=== PATIENT | female | born 2000 | race Caucasian/White ===

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

== ENCOUNTER → 2022-01-05 | Outpatient (CLI) | payer BC | LOC: M PLAIMG 07:45 | PROVIDERS: ATTEND Physician Assistant | DX: M54.2 Cervicalgia (principal) ==

== ENCOUNTER → 2022-01-05 | Outpatient (CLI) | payer BC | LOC: M WHC 07:09 | PROVIDERS: ATTEND Physician Assistant | DX: R10.84 Generalized abdominal pain (principal) ==

== ENCOUNTER 2022-01-06 14:10 | Emergency (ER) | payer BC ==
[~2022-01-06] VITALS: Ht 157.5 cm; Wt 70.5 kg
[2022-01-06] MEDS ORDERED: ACETAMINOPHEN 500 MG TAB PO ONE (18:00)
[2022-01-06 20:08] VITALS: BP 127/86
== END 2022-01-06 20:16 | disposition home or self-care (01) ==
LOC: M ED 18:10
DX: M25.562 Pain in left knee (principal); W00.0XXA Fall on same level due to ice and snow, initial encounter; Y99.0 Civilian activity done for income or pay; G89.29 Other chronic pain; M54.9 Dorsalgia, unspecified; M54.2 Cervicalgia; E07.9 Disorder of thyroid, unspecified; F17.290 Nicotine dependence, other tobacco product, uncomplicated; Z79.890 Hormone replacement therapy; Z79.51 Long term (current) use of inhaled steroids; Z79.899 Other long term (current) drug therapy

== ENCOUNTER 2022-02-08 10:00 | Outpatient (RCR) | payer BC, OTHER | END 2022-02-17 | LOC: M PT 10:00 | PROVIDERS: ATTEND Orthopaedic Surgery Hand Surgery | DX: M54.50 Low back pain, unspecified (principal) ==

== ENCOUNTER 2022-03-19 14:15 | Outpatient (RCR) | payer BC | END 2022-03-20 | LOC: M PT 14:15 | PROVIDERS: ATTEND Orthopaedic Surgery Hand Surgery | DX: M54.50 Low back pain, unspecified (principal); M54.2 Cervicalgia ==

== ENCOUNTER 2022-04-16 10:45 | Outpatient (RCR) | payer BC | END 2022-04-17 | LOC: M PT 10:45 | PROVIDERS: ATTEND Orthopaedic Surgery Hand Surgery | DX: M54.50 Low back pain, unspecified (principal); M54.2 Cervicalgia ==

== ENCOUNTER 2022-04-24 10:47 | Outpatient (RCR) | payer BC ==
[2022-04-24] MEDS ORDERED: SUCR1ORA2 (12:31)
[2022-04-24] MEDS ORDERED: FAMO20TA5 (12:31)
[2022-04-24] MEDS ORDERED: ESOM40CA35 (12:31)
== END 2022-05-18 ==
LOC: M PT 10:47
PROVIDERS: ATTEND Orthopaedic Surgery Hand Surgery
DX: M54.50 Low back pain, unspecified (principal); M54.2 Cervicalgia

== ENCOUNTER 2022-04-24 11:49 | Emergency (ER) | payer BC ==
[~2022-04-24] VITALS: Ht 157.5 cm; Wt 46.7 kg
[2022-04-24] MEDS ORDERED: ESOM40CA35 (12:31)
[2022-04-24] MEDS ORDERED: SUCR1ORA2 (12:31)
[2022-04-24] MEDS ORDERED: FAMO20TA5 (12:31)
[2022-04-24 12:56] LABS: BASO % 0.6 % (0.0-1.0); EOS # 0.2 10^3/uL (0.0-0.5); EOS % 2.8 % (0.0-3.0); HEMATOCRIT 42.9 % (36.0-47.0); HEMOGLOBIN 13.9 g/dl (12.0-15.5); LYMPH # 1.8 10^3/uL (1.5-5.0); LYMPH % 32.3 % (24.0-44.0); MEAN CORPUSCULAR HEMOGLOBIN 27.4 pg (27.0-33.0); MEAN CORPUSCULAR HGB CONC 32.4 g/dl (32.0-36.5); MEAN CORPUSCULAR VOLUME 84.6 fl (80.0-96.0); MONO # 0.5 10^3/uL (0.0-0.8); MONO % 8.3 % (2.0-8.0); NEUTROPHILS % 55.8 % (36.0-66.0); PLATELET COUNT, AUTOMATED 226 10^3/uL (150-450); RED BLOOD COUNT 5.07 10^6/uL (4.00-5.40); WHITE BLOOD COUNT 5.4 10^3/uL (4.0-10.0)
[2022-04-24 13:25] LABS: BLOOD UREA NITROGEN 11 MG/DL (9-23); CARBON DIOXIDE LEVEL 29 MMOL/L (20-31); CHLORIDE LEVEL 106 MMOL/L (98-107); CREATININE FOR GFR 0.74 MG/DL (0.55-1.30); GLUCOSE, FASTING 88 MG/DL (60-100); POTASSIUM SERUM 4.8 MMOL/L (3.5-5.1); SODIUM LEVEL 139 MMOL/L (136-145)
[2022-04-24 13:28] LABS: HCG, SERUM QUALITATIVE NEGATIVE (NEGATIVE); THYROID STIMULATING HORMONE 1.343 uIU/ML (0.48-4.17)
[2022-04-24 16:00] VITALS: BP 119/73
[2022-04-24 16:23] LABS: MAGNESIUM LEVEL 1.8 MG/DL (1.8-2.4)
[2022-04-24 16:24] LABS: CK-MB VALUE MASS < 1.0 NG/ML (<3.6); CPK CREATINE PHOSPHOKINASE 88 U/L (34-145); MB/CK RELATIVE INDEX 1.13 (< OR =4)
[2022-04-24 16:27] LABS: FERRITIN 28.5 NG/ML (7.3-270.7)
[2022-04-24 16:30] LABS: FOLATE 14.84 NG/ML (>5.4)
== END 2022-04-24 16:13 | disposition left against medical advice (07) ==
LOC: M ED 11:49
DX: R42 Dizziness and giddiness (principal); R00.2 Palpitations; Z53.20 Procedure and treatment not carried out because of patient's decision for unspecified reasons; J45.909 Unspecified asthma, uncomplicated; K21.9 Gastro-esophageal reflux disease without esophagitis; E03.9 Hypothyroidism, unspecified; F32.A Depression, unspecified; F41.9 Anxiety disorder, unspecified; F17.290 Nicotine dependence, other tobacco product, uncomplicated; Z79.51 Long term (current) use of inhaled steroids; Z79.890 Hormone replacement therapy; Z79.899 Other long term (current) drug therapy

== ENCOUNTER → 2023-04-10 | Outpatient (REF) | payer BC ==
[~2023-04-10] MED LIST changes: +ESOM40CA35; +FAMO20TA5; +SUCR1ORA2
== END ==
LOC: M SFHCADAM 13:36
PROVIDERS: ATTEND Family Medicine
DX: R09.89 Other specified symptoms and signs involving the circulatory and respiratory systems (principal)

== ENCOUNTER → 2023-04-17 | Outpatient (CLI) | payer BC ==
[2023-04-17 11:27] LABS: BASO % 0.4 % (0.0-1.0); EOS # 0.1 10^3/uL (0.0-0.5); HEMATOCRIT 43.7 % (36.0-47.0); HEMOGLOBIN 14.4 g/dl (12.0-15.5); LYMPH # 1.3 10^3/uL (1.5-5.0); LYMPH % 29.6 % (24.0-44.0); MEAN CORPUSCULAR HEMOGLOBIN 27.4 pg (27.0-33.0); MEAN CORPUSCULAR VOLUME 83.2 fl (80.0-96.0); MONO # 0.5 10^3/uL (0.0-0.8); MONO % 10.2 % (2.0-8.0); NEUTROPHILS # 2.6 10^3/uL (1.5-8.5); NEUTROPHILS % 57.6 % (36.0-66.0); PLATELET COUNT, AUTOMATED 241 10^3/uL (150-450); RED BLOOD COUNT 5.25 10^6/uL (4.00-5.40); WHITE BLOOD COUNT 4.5 10^3/uL (4.0-10.0)
[2023-04-17 12:03] LABS: THYROID STIMULATING HORMONE 1.033 uIU/ML (0.55-4.78)
[2023-04-17 12:04] LABS: ALBUMIN 4.1 G/DL (3.2-5.2); ALKALINE PHOSPHATASE 75 U/L (46-116); ALT/SGPT 12 U/L (7.0-40); AST/SGOT 8 U/L (<34); BILIRUBIN,TOTAL 0.5 MG/DL (0.3-1.2); BLOOD UREA NITROGEN 14 MG/DL (9-23); CARBON DIOXIDE LEVEL 27 MMOL/L (20-31); CHLORIDE LEVEL 108 MMOL/L (98-107); CREATININE FOR GFR 0.77 MG/DL (0.55-1.30); GLOMERULAR FILTRATION RATE > 60.0 (>60); GLUCOSE, FASTING 77 MG/DL (60-100); POTASSIUM SERUM 5.3 MMOL/L (3.5-5.1); SODIUM LEVEL 141 MMOL/L (136-145); TOTAL PROTEIN 6.6 G/DL (5.7-8.2)
== END ==
LOC: M PLALAB 08:50
PROVIDERS: ATTEND Family Medicine
DX: E03.9 Hypothyroidism, unspecified (principal); F31.81 Bipolar II disorder

== ENCOUNTER → 2023-04-24 | Outpatient (CLI) | payer BC | LOC: M PLALAB 12:03 | PROVIDERS: ATTEND Physician Assistant Medical | DX: R07.81 Pleurodynia (principal); J06.9 Acute upper respiratory infection, unspecified; B97.89 Other viral agents as the cause of diseases classified elsewhere ==

== ENCOUNTER → 2023-08-13 | Outpatient (REF) | payer BC ==
[2023-08-13 19:20] LABS: GC DNA AMPLIFICATION NEGATIVE (NEGATIVE)
== END ==
LOC: M SFHCPLAZ 15:02
PROVIDERS: ATTEND Family Medicine
DX: Z12.4 Encounter for screening for malignant neoplasm of cervix (principal); Z11.9 Encounter for screening for infectious and parasitic diseases, unspecified

== ENCOUNTER 2023-09-14 10:35 | Emergency (ER) | payer BC ==
[~2023-09-14] VITALS: Ht 154.9 cm; Wt 80.4 kg
[2023-09-14] MEDS ORDERED: HYDR-3363 (10:54)
[2023-09-14] MEDS ORDERED: LAMI25TA (10:54)
[2023-09-14] MEDS ORDERED: PROP10TA56 (10:54)
[2023-09-14] MEDS ORDERED: BUSP10TA79 (10:54)
[2023-09-14] MEDS ORDERED: LEVO88TA3 (10:54)
[2023-09-14 11:42] LABS: BASO % 0.4 % (0.0-1.0); EOS # 0.2 10^3/uL (0.0-0.5); EOS % 2.1 % (0.0-3.0); HEMATOCRIT 41.6 % (36.0-47.0); HEMOGLOBIN 13.8 g/dl (12.0-15.5); LYMPH # 1.9 10^3/uL (1.5-5.0); LYMPH % 26.5 % (24.0-44.0); MEAN CORPUSCULAR HEMOGLOBIN 27.8 pg (27.0-33.0); MEAN CORPUSCULAR HGB CONC 33.2 g/dl (32.0-36.5); MEAN CORPUSCULAR VOLUME 83.9 fl (80.0-96.0); MONO # 0.7 10^3/uL (0.0-0.8); MONO % 9.5 % (2.0-8.0); NEUTROPHILS # 4.5 10^3/uL (1.5-8.5); NEUTROPHILS % 61.4 % (36.0-66.0); PLATELET COUNT, AUTOMATED 225 10^3/uL (150-450); RED BLOOD COUNT 4.96 10^6/uL (4.00-5.40); WHITE BLOOD COUNT 7.3 10^3/uL (4.0-10.0)
[2023-09-14 11:56] LABS: INR 0.97; PARTIAL THROMBOPLASTIN TIME 30.1 SECONDS (24.8-34.2); PROTHROMBIN TIME 12.6 SECONDS (12.5-14.5)
[2023-09-14 12:02] LABS: CK-MB VALUE MASS < 1.0 NG/ML (<3.6)
[2023-09-14 12:03] LABS: LIPASE 28 U/L (12-53)
[2023-09-14 12:04] LABS: CPK CREATINE PHOSPHOKINASE 67 U/L (34-145); MB/CK RELATIVE INDEX 1.49 (< OR =4)
[2023-09-14 12:05] LABS: ALKALINE PHOSPHATASE 96 U/L (46-116); ALT/SGPT 13 U/L (7.0-40); AST/SGOT < 8 U/L (<34); BILIRUBIN,DIRECT 0.2 MG/DL (<0.4); BILIRUBIN,TOTAL 0.5 MG/DL (0.3-1.2); BLOOD UREA NITROGEN 19 MG/DL (9-23); CALCIUM LEVEL 8.7 MG/DL (8.5-10.1); CARBON DIOXIDE LEVEL 31 MMOL/L (20-31); CHLORIDE LEVEL 107 MMOL/L (98-107); CREATININE FOR GFR 0.75 MG/DL (0.55-1.30); GLOMERULAR FILTRATION RATE > 60.0 (>60); GLUCOSE, FASTING 59 MG/DL (60-100); SODIUM LEVEL 141 MMOL/L (136-145); TOTAL PROTEIN 6.6 G/DL (5.7-8.2)
[2023-09-14 12:06] LABS: FREE T4 1.56 NG/DL (0.89-1.76)
[2023-09-14 12:07] LABS: THYROID STIMULATING HORMONE 1.305 uIU/ML (0.55-4.78)
[2023-09-14 12:24] LABS: HCG, SERUM QUALITATIVE NEGATIVE (NEGATIVE)
[2023-09-14] MEDS: OMEPRAZOLE 20MG CAP PO ONE (12:45)
[2023-09-14] MEDS: SUCRALFATE 1 GM TAB PO ONE (12:45)
[2023-09-14] MEDS ORDERED: ISOVUE-370 76% 100ML VIAL As Ordered ONE (12:47)
[2023-09-14 13:03] LABS: AMPHETAMINES LEVEL URINE NEGATIVE (NEGATIVE); BARBITURATES URINE NEGATIVE (NEGATIVE); BENZODIAZEPINES URINE NEGATIVE (NEGATIVE); COCAINE METABOLITE URINE NEGATIVE (NEGATIVE); METHADONE URINE NEGATIVE (NEGATIVE); OPIATES URINE NEGATIVE (NEGATIVE); PHENCYCLIDINE URINE NEGATIVE (NEGATIVE)
[2023-09-14 13:05] LABS: CANNABINOIDS URINE POSITIVE (NEGATIVE)
[2023-09-14] MEDS ORDERED: FAMO20TA PO (14:25)
[2023-09-14] MEDS ORDERED: CARA1TAB6 PO (14:25)
[2023-09-14 14:37] VITALS: BP 120/72; TEMP 97.5; O2SAT 100
== END 2023-09-14 14:40 | disposition home or self-care (01) ==
LOC: M ED 10:35
DX: R07.89 Other chest pain (principal); K21.9 Gastro-esophageal reflux disease without esophagitis; J45.909 Unspecified asthma, uncomplicated; F17.290 Nicotine dependence, other tobacco product, uncomplicated; Z79.899 Other long term (current) drug therapy
CPT/HCPCS: 36415; 71046; 71275; 80048; 80076; 80307; 82550; 82553; 83690; 84439; 84443; 84484; 84703; 85025; 85610; 85730; 93005; 99284; Q9967

== ENCOUNTER 2023-12-23 13:04 | Emergency (ER) | payer OTHER, BC ==
[~2023-12-23] VITALS: Ht 154.9 cm; Wt 82.2 kg
[~2023-12-23 13:04] MED LIST changes: +BUSP10TA79; +CARA1TAB6 PO; +FAMO20TA PO; +HYDR-3363; +LAMI25TA; +LEVO88TA3; +PROP10TA56
[2023-12-23] MEDS: ACETAMINOPHEN 500 MG TAB PO ONE (14:40)
[2023-12-23 15:45] LABS: HCG, SERUM QUALITATIVE NEGATIVE (NEGATIVE)
[2023-12-23 17:01] VITALS: BP 117/64; TEMP 97.6; O2SAT 100
== END 2023-12-23 17:05 | disposition home or self-care (01) ==
LOC: M ED 13:04
DX: S06.0X0A Concussion without loss of consciousness, initial encounter (principal); S16.1XXA Strain of muscle, fascia and tendon at neck level, initial encounter; Y92.9 Unspecified place or not applicable; Y93.9 Activity, unspecified; Y99.0 Civilian activity done for income or pay; E03.9 Hypothyroidism, unspecified; J45.909 Unspecified asthma, uncomplicated; F41.9 Anxiety disorder, unspecified; F32.A Depression, unspecified; F17.290 Nicotine dependence, other tobacco product, uncomplicated; F12.10 Cannabis abuse, uncomplicated; F10.10 Alcohol abuse, uncomplicated; Z79.899 Other long term (current) drug therapy

== ENCOUNTER → 2024-03-17 | Outpatient (CLI) | payer BC ==
[2024-03-17 17:49] LABS: HEMATOCRIT 40.7 % (36.0-47.0); HEMOGLOBIN 13.6 g/dl (12.0-15.5); MEAN CORPUSCULAR HEMOGLOBIN 27.8 pg (27.0-33.0); MEAN CORPUSCULAR HGB CONC 33.4 g/dl (32.0-36.5); MEAN CORPUSCULAR VOLUME 83.1 fl (80.0-96.0); PLATELET COUNT, AUTOMATED 235 10^3/uL (150-450); WHITE BLOOD COUNT 8.9 10^3/uL (4.0-10.0)
[2024-03-17 18:22] LABS: THYROID STIMULATING HORMONE 0.027 uIU/ML (0.55-4.78)
[2024-03-17 18:35] LABS: HEPATITIS B SURFACE ANTIGEN NEGATIVE (NEGATIVE)
[2024-03-17 18:47] LABS: HIV 1&2 SCREEN NEGATIVE (NEGATIVE)
== END ==
LOC: M PLALAB 15:23
PROVIDERS: ATTEND Family Medicine
DX: Z34.91 Encounter for supervision of normal pregnancy, unspecified, first trimester (principal)

== ENCOUNTER → 2024-04-01 | Outpatient (CLI) | payer BC | LOC: M RAD 08:17 | PROVIDERS: ATTEND Family Medicine | DX: Z34.91 Encounter for supervision of normal pregnancy, unspecified, first trimester (principal) ==

== ENCOUNTER → 2024-04-09 | Outpatient (CLI) | payer BC ==
[2024-04-09 11:11] LABS: Trichomonas vaginalis (AMP) NOT DETECTED (NEGATIVE)
[2024-04-09 11:34] LABS: GC DNA AMPLIFICATION NEGATIVE (NEGATIVE)
== END ==
LOC: M PLALAB 08:57
PROVIDERS: ATTEND Nurse Practitioner Family
DX: Z34.81 Encounter for supervision of other normal pregnancy, first trimester (principal)

== ENCOUNTER 2024-04-22 06:34 | Emergency (ER) | payer BC ==
[~2024-04-22] VITALS: Ht 154.9 cm; Wt 79.5 kg
[2024-04-22 06:47] VITALS: BP 135/82; TEMP 98.6; O2SAT 98
[2024-04-22 07:46] LABS: BASO % 0.3 % (0.0-1.0); EOS # 0.1 10^3/uL (0.0-0.5); EOS % 0.7 % (0.0-3.0); HEMATOCRIT 38.7 % (36.0-47.0); HEMOGLOBIN 13.3 g/dl (12.0-15.5); LYMPH # 1.3 10^3/uL (1.5-5.0); LYMPH % 11.5 % (24.0-44.0); MEAN CORPUSCULAR HEMOGLOBIN 28.2 pg (27.0-33.0); MEAN CORPUSCULAR HGB CONC 34.4 g/dl (32.0-36.5); MONO # 0.7 10^3/uL (0.0-0.8); MONO % 6.3 % (2.0-8.0); NEUTROPHILS # 8.9 10^3/uL (1.5-8.5); NEUTROPHILS % 80.9 % (36.0-66.0); PLATELET COUNT, AUTOMATED 213 10^3/uL (150-450); RED BLOOD COUNT 4.72 10^6/uL (4.00-5.40); WHITE BLOOD COUNT 10.9 10^3/uL (4.0-10.0)
[2024-04-22 08:20] LABS: BLOOD UREA NITROGEN 6 MG/DL (9-23); CALCIUM LEVEL 8.9 MG/DL (8.5-10.1); CARBON DIOXIDE LEVEL 26 MMOL/L (20-31); CHLORIDE LEVEL 108 MMOL/L (98-107); CREATININE FOR GFR 0.66 MG/DL (0.55-1.30); GLOMERULAR FILTRATION RATE > 60.0 (>60); GLUCOSE, FASTING 88 MG/DL (60-100); POTASSIUM SERUM 4.8 MMOL/L (3.5-5.1); SODIUM LEVEL 142 MMOL/L (136-145)
[2024-04-22 08:32] LABS: APPEARANCE, URINE CLEAR (CLEAR); BACTERIA, URINE AUTO NEGATIVE (NEGATIVE); BILIRUBIN, URINE AUTO NEGATIVE (NEGATIVE); BLOOD, URINE BLOOD 2+ (NEGATIVE); COLOR, URINE YELLOW (YELLOW); GLUCOSE, URINE (UA) AUTO NEGATIVE (NEGATIVE); KETONE, URINE AUTO NEGATIVE (NEGATIVE); LEUKOCYTE ESTERASE, URINE AUTO NEGATIVE (NEGATIVE); MUCUS, URINE SMALL (NEGATIVE); NITRITE, URINE AUTO NEGATIVE (NEGATIVE); PROTEIN, URINE AUTO NEGATIVE (NEGATIVE); RBC, URINE AUTO 0 /HPF (0-3); SQUAMOUS EPITHELIAL CELL UR AU 0 /HPF (0-6); UROBILINOGEN, URINE AUTO 0.2 mg/dL (0.0-2.0); WBC, URINE AUTO 0 /HPF (0-3)
== END 2024-04-22 12:09 | disposition home or self-care (01) ==
LOC: M ED 06:34
DX: O02.1 Missed abortion (principal); Z3A.09 9 weeks gestation of pregnancy; K21.9 Gastro-esophageal reflux disease without esophagitis; E03.9 Hypothyroidism, unspecified; Z79.899 Other long term (current) drug therapy

== ENCOUNTER → 2024-04-25 | Outpatient (CLI) | payer BC | LOC: M LAB 14:42 | PROVIDERS: ATTEND Advanced Practice Midwife | DX: O03.9 Complete or unspecified spontaneous abortion without complication (principal) ==

== ENCOUNTER 2024-04-27 13:13 | Emergency (ER) | payer BC ==
[~2024-04-27] VITALS: Ht 154.9 cm; Wt 78.6 kg
[2024-04-27 13:17] VITALS: TEMP 98.1
[2024-04-27 13:52] LABS: BASO % 0.3 % (0.0-1.0); EOS # 0.1 10^3/uL (0.0-0.5); EOS % 0.7 % (0.0-3.0); HEMATOCRIT 37.6 % (36.0-47.0); HEMOGLOBIN 12.4 g/dl (12.0-15.5); LYMPH # 0.8 10^3/uL (1.5-5.0); MEAN CORPUSCULAR HEMOGLOBIN 27.3 pg (27.0-33.0); MEAN CORPUSCULAR VOLUME 82.6 fl (80.0-96.0); MONO # 0.6 10^3/uL (0.0-0.8); MONO % 8.1 % (2.0-8.0); NEUTROPHILS # 6.2 10^3/uL (1.5-8.5); NEUTROPHILS % 80.6 % (36.0-66.0); PLATELET COUNT, AUTOMATED 186 10^3/uL (150-450); RED BLOOD COUNT 4.55 10^6/uL (4.00-5.40); WHITE BLOOD COUNT 7.7 10^3/uL (4.0-10.0)
[2024-04-27] MEDS: NS (Normal Saline) 0.9% 1,000 ML IV ONE ×2 (14:02→17:22)
[2024-04-27 14:16] LABS: LIPASE 20 U/L (12-53)
[2024-04-27 14:18] LABS: ALKALINE PHOSPHATASE 87 U/L (35-104); ALT/SGPT 18 U/L (7.0-40); AST/SGOT 16 U/L (<34); BILIRUBIN,DIRECT 0.2 MG/DL (<0.4); BILIRUBIN,TOTAL 0.6 MG/DL (0.3-1.2); BLOOD UREA NITROGEN 11 MG/DL (9-23); CALCIUM LEVEL 9.2 MG/DL (8.5-10.1); CARBON DIOXIDE LEVEL 22 MMOL/L (20-31); CHLORIDE LEVEL 103 MMOL/L (98-107); CREATININE FOR GFR 0.61 MG/DL (0.55-1.30); GLOMERULAR FILTRATION RATE > 60.0 (>60); GLUCOSE, FASTING 110 MG/DL (60-100); POTASSIUM SERUM 3.3 MMOL/L (3.5-5.1); SODIUM LEVEL 138 MMOL/L (136-145)
[2024-04-27 14:31] LABS: HCG, SERUM QUANTITATIVE 4370.7 MIU/ML (<4.2)
[2024-04-27] MEDS: POTASSIUM CHLORIDE 10MEQ SR TABLET PO ONE (14:53)
[2024-04-27] MEDS: IBUPROFEN 600MG TAB PO ONE (17:22)
[2024-04-27 19:17] VITALS: BP 119/58; O2SAT 99
== END 2024-04-27 19:18 | disposition home or self-care (01) ==
LOC: M ED 13:13
DX: O03.4 Incomplete spontaneous abortion without complication (principal); K21.9 Gastro-esophageal reflux disease without esophagitis; F41.9 Anxiety disorder, unspecified; F32.A Depression, unspecified; Z91.048 Other nonmedicinal substance allergy status; Z79.899 Other long term (current) drug therapy

== ENCOUNTER → 2024-05-05 | Outpatient (CLI) | payer BC | LOC: M PLALAB 15:13 | PROVIDERS: ATTEND Advanced Practice Midwife | DX: O03.9 Complete or unspecified spontaneous abortion without complication (principal) ==

== ENCOUNTER 2024-05-09 23:12 | Emergency (ER) | payer BC ==
[~2024-05-09] VITALS: Ht 154.9 cm; Wt 68.2 kg
[~2024-05-09 23:12] MED LIST changes: -BUSP10TA79; +BUSP10TA79 PO; -HYDR-3363; +HYDR-3363 PO; -LAMI25TA; +LAMI25TA PO; -PROP10TA56; +PROP10TA56 PO
[2024-05-10 00:02] LABS: BASO % 0.4 % (0.0-1.0); EOS # 0.1 10^3/uL (0.0-0.5); HEMATOCRIT 34.7 % (36.0-47.0); HEMOGLOBIN 11.3 g/dl (12.0-15.5); LYMPH # 1.4 10^3/uL (1.5-5.0); LYMPH % 17.6 % (24.0-44.0); MEAN CORPUSCULAR HEMOGLOBIN 27.2 pg (27.0-33.0); MEAN CORPUSCULAR HGB CONC 32.6 g/dl (32.0-36.5); MEAN CORPUSCULAR VOLUME 83.4 fl (80.0-96.0); MONO # 0.7 10^3/uL (0.0-0.8); MONO % 8.2 % (2.0-8.0); NEUTROPHILS # 5.9 10^3/uL (1.5-8.5); NEUTROPHILS % 72.6 % (36.0-66.0); PLATELET COUNT, AUTOMATED 280 10^3/uL (150-450); RED BLOOD COUNT 4.16 10^6/uL (4.00-5.40); WHITE BLOOD COUNT 8.1 10^3/uL (4.0-10.0)
[2024-05-10 00:06] LABS: KETONE, URINE AUTO RFX TRACE mg/dL (NEGATIVE); MUCUS, URINE RFX SMALL (NEGATIVE); NITRITE, URINE AUTO RFX NEGATIVE (NEGATIVE); RBC, URINE AUTO RFX TNTC /HPF (0-3); SQUAM EPITHELIAL CELL UR AURFX 1 /HPF (0-6); WBC, URINE AUTO RFX 0 /HPF (0-3)
[2024-05-10 00:19] LABS: LEUKOCYTE ESTERASE UR AUTO RFX TRACE (NEGATIVE)
[2024-05-10 00:27] LABS: BLOOD UREA NITROGEN 14 MG/DL (9-23); CARBON DIOXIDE LEVEL 26 MMOL/L (20-31); CHLORIDE LEVEL 105 MMOL/L (98-107); CREATININE FOR GFR 0.69 MG/DL (0.55-1.30); GLOMERULAR FILTRATION RATE > 60.0 (>60); GLUCOSE, FASTING 105 MG/DL (60-100); HCG, SERUM QUANTITATIVE 46.4 MIU/ML (<4.2); SODIUM LEVEL 141 MMOL/L (136-145)
[2024-05-10] MEDS: ONDANSETRON 4MG 2ML VIAL IV ONE (01:30)
[2024-05-10] MEDS: MORPHINE 2 MG/ML 1ML VIAL IV ONE (01:30)
[2024-05-10] MEDS: NS (Normal Saline) 0.9% 1,000 ML IV ONE (01:30)
[2024-05-10 02:47] LABS: Trichomonas vaginalis (AMP) NOT DETECTED (NEGATIVE)
[2024-05-10 03:11] LABS: GC DNA AMPLIFICATION NEGATIVE (NEGATIVE)
[2024-05-10 05:26] VITALS: BP 135/72; TEMP 97.3; O2SAT 99
[2024-05-11] MEDS ORDERED: FAMO1TAB11 PO (20:43)
[2024-05-11] MEDS ORDERED: LEVO75TA4 PO (20:43)
[2024-05-11] MEDS ORDERED: SUCR1TAB56 PO (20:43)
[2024-05-11] MEDS ORDERED: CYCL5TAB4 PO (20:43)
== END 2024-05-10 05:28 | disposition home or self-care (01) ==
LOC: M ED 23:12
DX: N93.9 Abnormal uterine and vaginal bleeding, unspecified (principal); E03.9 Hypothyroidism, unspecified; K21.9 Gastro-esophageal reflux disease without esophagitis; F32.A Depression, unspecified; Z91.09 Other allergy status, other than to drugs and biological substances; Z79.899 Other long term (current) drug therapy
CPT/HCPCS: 76830; 76856; 80048; 81001; 84702; 85025; 86850; 86900; 86901; 87086; 87210; 87661; 87810; 87850; 93976; 96361; 96374; 99284; J2405

== ENCOUNTER 2024-05-11 18:32 | Day surgery (SDC) | payer BC ==
[~2024-05-11] VITALS: Ht 154.9 cm; Wt 79.0 kg
[2024-05-11 19:39] LABS: KETONE, URINE AUTO RFX NEGATIVE (NEGATIVE); MUCUS, URINE RFX SMALL (NEGATIVE); NITRITE, URINE AUTO RFX NEGATIVE (NEGATIVE); RBC, URINE AUTO RFX TNTC /HPF (0-3); SQUAM EPITHELIAL CELL UR AURFX 0 /HPF (0-6)
[2024-05-11 19:40] LABS: LEUKOCYTE ESTERASE UR AUTO RFX 1+ (NEGATIVE); WBC, URINE AUTO RFX 86 /HPF (0-3)
[2024-05-11 19:41] LABS: BASO % 0.5 % (0.0-1.0); EOS # 0.1 10^3/uL (0.0-0.5); EOS % 1.8 % (0.0-3.0); HEMATOCRIT 34.2 % (36.0-47.0); HEMOGLOBIN 11.4 g/dl (12.0-15.5); LYMPH # 1.4 10^3/uL (1.5-5.0); LYMPH % 22.5 % (24.0-44.0); MEAN CORPUSCULAR HEMOGLOBIN 27.9 pg (27.0-33.0); MEAN CORPUSCULAR HGB CONC 33.3 g/dl (32.0-36.5); MEAN CORPUSCULAR VOLUME 83.6 fl (80.0-96.0); MONO # 0.6 10^3/uL (0.0-0.8); MONO % 9.1 % (2.0-8.0); NEUTROPHILS % 65.8 % (36.0-66.0); PLATELET COUNT, AUTOMATED 265 10^3/uL (150-450); RED BLOOD COUNT 4.09 10^6/uL (4.00-5.40); WHITE BLOOD COUNT 6.1 10^3/uL (4.0-10.0)
[2024-05-11] MEDS: KETOROLAC 30 MG/ML 1ML VIAL IV ONE (20:06)
[2024-05-11] MEDS: NS (Normal Saline) 0.9% 1,000 ML IV ONE (20:06)
[2024-05-11 20:07] LABS: BLOOD UREA NITROGEN 9 MG/DL (9-23); CALCIUM LEVEL 8.7 MG/DL (8.5-10.1); CARBON DIOXIDE LEVEL 27 MMOL/L (20-31); CHLORIDE LEVEL 105 MMOL/L (98-107); CREATININE FOR GFR 0.69 MG/DL (0.55-1.30); GLOMERULAR FILTRATION RATE > 60.0 (>60); GLUCOSE, FASTING 98 MG/DL (60-100); POTASSIUM SERUM 4.3 MMOL/L (3.5-5.1); SODIUM LEVEL 141 MMOL/L (136-145)
[2024-05-11] MEDS ORDERED: CYCL5TAB4 PO (20:43)
[2024-05-11] MEDS ORDERED: FAMO1TAB11 PO (20:43)
[2024-05-11] MEDS ORDERED: LEVO75TA4 PO (20:43)
[2024-05-11] MEDS ORDERED: SUCR1TAB56 PO (20:43)
[2024-05-11] MEDS ORDERED: HOME MED LIST COMPLETE! XX SCH (20:50)
[2024-05-11] MEDS: LIDOCAINE 1% SDV 30ML VIAL As Ordered ONE (21:13)
[2024-05-11] MEDS ORDERED: oxyCODONE 5MG TAB PO PRN (21:20)
[2024-05-11] MEDS ORDERED: fentaNYL 100 MCG/2 ML INJECTION IV PRN (21:20)
[2024-05-11] MEDS ORDERED: fentaNYL 100 MCG/2 ML INJECTION As Ordered ONE (21:44)
[2024-05-11] MEDS ORDERED: ONDANSETRON 4MG 2ML VIAL As Ordered ONE (21:44)
[2024-05-11] MEDS ORDERED: ROCURONIUM BROMIDE 50MG/5ML VIAL As Ordered ONE (21:44)
[2024-05-11] MEDS ORDERED: LIDOCAINE 2% 100MG/5ML SDV (FOR ANES.) As Ordered ONE (21:44)
[2024-05-11] MEDS ORDERED: propofoL 200 MG/20 ML VIAL As Ordered ONE (21:44)
[2024-05-11] MEDS ORDERED: KETOROLAC 30 MG/ML 1ML VIAL As Ordered ONE (21:44)
[2024-05-11] MEDS ORDERED: MIDAZOLAM INJ 2MG/2ML VIAL As Ordered ONE (21:44)
[2024-05-11] MEDS ORDERED: PHENYLephrine 500MCG 5ML (100MCG/ML) SYRINGE As Ordered ONE (21:49)
[2024-05-11] MEDS ORDERED: SUGAMMADEX SODIUM 500 MG/5 ML VIAL (BRIDION) As Ordered ONE (21:52)
[2024-05-11] MEDS ORDERED: ACETAMINOPHEN 1000MG/100ML IV BAG As Ordered ONE (22:06)
[2024-05-11] MEDS: ONDANSETRON 4MG 2ML VIAL IV PRN (22:30)
[2024-05-11] MEDS: MORPHINE 2 MG/ML 1ML VIAL IV PRN (22:34)
[2024-05-11 22:50] VITALS: BP 111/70; TEMP 98; O2SAT 100
== END 2024-05-11 23:05 | disposition home or self-care (01) ==
LOC: M ED 18:32 → M SDC 18:33
PROVIDERS: ATTEND Specialist
DX: O03.1 Delayed or excessive hemorrhage following incomplete spontaneous abortion (principal); E03.9 Hypothyroidism, unspecified; J45.909 Unspecified asthma, uncomplicated; Z79.899 Other long term (current) drug therapy; Z79.890 Hormone replacement therapy
CPT/HCPCS: 59812; 80048; 81001; 84702; 85025; 86850; 86900; 86901; 87086; 88305; 99284; J0131; J1100; J1885; J2250; J2371; J2405; J3010

== ENCOUNTER → 2024-05-27 | Outpatient (CLI) | payer BC ==
[~2024-05-27] MED LIST changes: +CYCL5TAB4 PO; +FAMO1TAB11 PO; +LEVO75TA4 PO; +SUCR1TAB56 PO
[2024-05-27 18:19] LABS: FREE T4 1.34 NG/DL (0.89-1.76); THYROID STIMULATING HORMONE 0.974 uIU/ML (0.55-4.78)
== END ==
LOC: M PLALAB 15:03
PROVIDERS: ATTEND Family Medicine
DX: E03.9 Hypothyroidism, unspecified (principal)

== ENCOUNTER → 2024-05-27 | Outpatient (CLI) | payer BC | LOC: M PLALAB 14:59 | PROVIDERS: ATTEND Advanced Practice Midwife | DX: O03.9 Complete or unspecified spontaneous abortion without complication (principal); Z3A.00 Weeks of gestation of pregnancy not specified ==

== ENCOUNTER → 2024-06-19 | Outpatient (CLI) | payer BC ==
[~2024-06-19] MED LIST changes: +BENZ200C70 PO; -SUCR1ORA2; +SUCR1ORA20
[2024-06-19 18:27] LABS: BASO % 0.4 % (0.0-1.0); EOS # 0.3 10^3/uL (0.0-0.5); EOS % 2.4 % (0.0-3.0); HEMATOCRIT 41.2 % (36.0-47.0); LYMPH # 1.9 10^3/uL (1.5-5.0); LYMPH % 18.2 % (24.0-44.0); MEAN CORPUSCULAR HEMOGLOBIN 27.3 pg (27.0-33.0); MEAN CORPUSCULAR HGB CONC 31.6 g/dl (32.0-36.5); MEAN CORPUSCULAR VOLUME 86.6 fl (80.0-96.0); MONO # 0.8 10^3/uL (0.0-0.8); MONO % 7.8 % (2.0-8.0); NEUTROPHILS # 7.4 10^3/uL (1.5-8.5); PLATELET COUNT, AUTOMATED 304 10^3/uL (150-450); RED BLOOD COUNT 4.76 10^6/uL (4.00-5.40); WHITE BLOOD COUNT 10.5 10^3/uL (4.0-10.0)
[2024-06-19 18:34] LABS: ALBUMIN 4.2 G/DL (3.2-5.2); ALKALINE PHOSPHATASE 112 U/L (35-104); ALT/SGPT 17 U/L (7.0-40); AST/SGOT 14 U/L (<34); BILIRUBIN,TOTAL 0.4 MG/DL (0.3-1.2); BLOOD UREA NITROGEN 17 MG/DL (9-23); CALCIUM LEVEL 9.4 MG/DL (8.5-10.1); CARBON DIOXIDE LEVEL 29 MMOL/L (20-31); CHLORIDE LEVEL 107 MMOL/L (98-107); CREATININE FOR GFR 0.82 MG/DL (0.55-1.30); GLOMERULAR FILTRATION RATE > 90.0 (>60); GLUCOSE, FASTING 82 MG/DL (60-100); POTASSIUM SERUM 4.5 MMOL/L (3.5-5.1); SODIUM LEVEL 145 MMOL/L (136-145); TOTAL PROTEIN 7.2 G/DL (5.7-8.2)
[2024-06-19 18:55] LABS: MONO REFLEX EBV COMP NEGATIVE (NEGATIVE)
[2024-06-23 13:58] LABS: EBV AB TO NUCLEAR ANTIGEN < 18.00 U/mL (<18.00); EBV VIRAL CAPSID AG IGG < 18.00 U/mL (<18.00); EBV VIRAL CAPSID AG IGM < 36.00 U/mL (<36.00)
== END ==
LOC: M PLALAB 16:25
PROVIDERS: ATTEND Student in an Organized Health Care Education/Training Program
DX: J02.9 Acute pharyngitis, unspecified (principal)

== ENCOUNTER 2024-06-20 11:11 | Emergency (ER) | payer BC ==
[~2024-06-20] VITALS: Ht 154.9 cm; Wt 78.5 kg
[~2024-06-20 11:11] MED LIST changes: -BENZ200C70 PO
[2024-06-20] MEDS ORDERED: BENZ200C70 PO (12:54)
[2024-06-20 12:57] VITALS: BP 117/58; TEMP 97; O2SAT 100
== END 2024-06-20 12:58 | disposition home or self-care (01) ==
LOC: M ED 11:11
DX: J02.9 Acute pharyngitis, unspecified (principal); B34.1 Enterovirus infection, unspecified; J45.909 Unspecified asthma, uncomplicated; F17.290 Nicotine dependence, other tobacco product, uncomplicated; Z91.09 Other allergy status, other than to drugs and biological substances; Z79.899 Other long term (current) drug therapy

== ENCOUNTER → 2024-11-06 | Outpatient (REF) | payer BC ==
[~2024-11-06] MED LIST changes: +BENZ200C70 PO
== END ==
LOC: M SFHCPLAZ 13:21
PROVIDERS: ATTEND Family Medicine
DX: J02.9 Acute pharyngitis, unspecified (principal)

== ENCOUNTER 2024-12-11 13:32 | Emergency (ER) | payer OTHER, BC ==
[~2024-12-11] VITALS: Ht 162.6 cm; Wt 74.4 kg
[2024-12-11 15:38] VITALS: TEMP 97.7
[2024-12-11] MEDS ORDERED: ONDA-282 PO (17:43)
[2024-12-11 17:52] VITALS: BP 110/71; O2SAT 100
== END 2024-12-11 17:53 | disposition home or self-care (01) ==
LOC: M ED 13:32
DX: S06.0X0A Concussion without loss of consciousness, initial encounter (principal); Y92.9 Unspecified place or not applicable; Y93.9 Activity, unspecified; Y99.0 Civilian activity done for income or pay; W50.0XXA Accidental hit or strike by another person, initial encounter; K21.9 Gastro-esophageal reflux disease without esophagitis; Z91.09 Other allergy status, other than to drugs and biological substances; Z79.899 Other long term (current) drug therapy

== ENCOUNTER 2024-12-16 11:55 | Emergency (ER) | payer BC, OTHER ==
[~2024-12-16] VITALS: Ht 152.4 cm; Wt 75.7 kg
[~2024-12-16 11:55] MED LIST changes: +ONDA-282 PO
[2024-12-16] MEDS: METOCLOPRAMIDE 10 MG TAB PO ONE (13:58)
[2024-12-16 15:01] LABS: HCG, SERUM QUALITATIVE NEGATIVE (NEGATIVE)
[2024-12-16 16:04] VITALS: BP 120/58; TEMP 98.6; O2SAT 100
== END 2024-12-16 16:08 | disposition home or self-care (01) ==
LOC: M ED 11:55
DX: S06.0X0A Concussion without loss of consciousness, initial encounter (principal); Y92.9 Unspecified place or not applicable; Y93.9 Activity, unspecified; Y99.9 Unspecified external cause status; I47.10 Supraventricular tachycardia, unspecified; F17.210 Nicotine dependence, cigarettes, uncomplicated; Z91.09 Other allergy status, other than to drugs and biological substances; Z79.899 Other long term (current) drug therapy

== ENCOUNTER 2025-01-23 09:37 | Emergency (ER) | payer BC ==
[~2025-01-23] VITALS: Ht 152.4 cm; Wt 72.1 kg
[2025-01-23 11:52] LABS: KETONE, URINE AUTO RFX NEGATIVE (NEGATIVE); LEUKOCYTE ESTERASE UR AUTO RFX NEGATIVE (NEGATIVE); MUCUS, URINE RFX SMALL (NEGATIVE); NITRITE, URINE AUTO RFX NEGATIVE (NEGATIVE); RBC, URINE AUTO RFX 0 /HPF (0-3); SQUAM EPITHELIAL CELL UR AURFX 0 /HPF (0-6); WBC, URINE AUTO RFX 0 /HPF (0-3)
[2025-01-23] MEDS: ACETAMINOPHEN 500 MG TAB PO ONE (12:14)
[2025-01-23] MEDS: KETOROLAC 30 MG/ML 1 ML VIAL IV ONE (12:14)
[2025-01-23 12:29] LABS: BASO # 0.0 10^3/uL (0.0-0.2); BASO % 0.4 % (0.0-1.0); EOS # 0.5 10^3/uL (0.0-0.5); EOS % 7.7 % (0.0-3.0); LYMPH # 2.1 10^3/uL (1.5-5.0); LYMPH % 31.1 % (24.0-44.0); MONO # 0.7 10^3/uL (0.0-0.8); MONO % 10.3 % (2.0-8.0); NEUTROPHILS # 3.5 10^3/uL (1.5-8.5); NEUTROPHILS % 50.4 % (36.0-66.0); PLATELET COUNT, AUTOMATED 274 10^3/uL (150-450)
[2025-01-23] MEDS ORDERED: ISOVUE-370 76% 100 ML VIAL As Ordered ONE (12:47)
[2025-01-23 12:55] LABS: HCG, SERUM QUALITATIVE NEGATIVE (NEGATIVE)
[2025-01-23 12:57] LABS: ALT/SGPT 16 U/L (7.0-40); AST/SGOT 15 U/L (<34)
[2025-01-23] MEDS ORDERED: MEDR4PAK PO (14:47)
[2025-01-23 15:09] VITALS: BP 109/66; TEMP 97; O2SAT 100
[2025-01-23] MEDS ORDERED: CYCL5TAB4 PO (15:11)
== END 2025-01-23 15:11 | disposition home or self-care (01) ==
LOC: M ED 09:37
DX: M51.26 Other intervertebral disc displacement, lumbar region (principal); E03.9 Hypothyroidism, unspecified; F17.210 Nicotine dependence, cigarettes, uncomplicated; F12.10 Cannabis abuse, uncomplicated; Z91.09 Other allergy status, other than to drugs and biological substances; Z79.899 Other long term (current) drug therapy
CPT/HCPCS: 72131; 74177; 80047; 80076; 81001; 83690; 84703; 85025; 96374; 99284; J1885; Q9967